=== PATIENT | male | born 1945 | race Caucasian/White ===

== ENCOUNTER 2022-08-01 13:16 | Inpatient (IN) | payer MEDICARE ==
[~2022-08-01 13:16] MED LIST: Iopamidol-370 76% 500 ML 1 ML ONE
[2022-08-01] MEDS ORDERED: LORazepam 2 MG/ML SYR.(CARPUJECT) ONE ×2 (13:27→15:26)
[2022-08-01] MEDS ORDERED: Ondansetron PF 4 MG/2 ML Vial ONE (13:43)
[2022-08-01] MEDS ORDERED: Rocuronium Bromide 10 MG/ML (10ML VIAL) ONE (13:52)
[2022-08-01 13:54] LABS: #Basophils 0.1 thou/uL (0.0-0.2); #Eosinphils 0.2 thou/uL (0.0-0.7); #Lymphocytes 2.9 thou/uL (1.20-3.40); #Monocytes 0.6 thou/uL (0.11-0.59); #Neutrophils 5.6 thou/uL (1.40-6.50); %Basophils 0.6 % (0.0-1.0); %Eosinophils 2.1 % (0.0-10.0); %Lymphocytes 30.7 % (21.0-51.0); %Monocytes 6.8 % (0.0-10.0); %Neutrophils 59.9 % (42.0-75.0); Hemoglobin 14.7 g/dL (14.0-18.0); Mean Corpuscular HGB CONC 32.3 g/dL (32.0-36.0); Mean Corpuscular Hemoglobin 30.5 pg (27.0-31.0); Mean Corpuscular Volume 94.3 fl (78.0-98.0); Mean Platelet Volume 10.4 fL (7.4-10.4); Platelet Count 161 10x3/uL (130-400); RBC Distribution Width 12.6 % (11.5-14.5); Red Blood Cell (RBC) Count 4.81 mill/uL (4.70-6.10); White Blood Cell (WBC) Count 9.4 10x3/uL (4.8-10.8)
[2022-08-01] MEDS ORDERED: Propofol 1,000 MG/100 ML VIAL IV ONE (13:58)
[2022-08-01 14:08] LABS: ALT (SGPT) Less than 7 U/L (8-55); AST (SGOT) 40 U/L (5-34); Albumin 4.5 g/dL (3.4-4.8); Alkaline Phosphatase 73 U/L (40-110); Anion Gap 18 mmol/L (10-20); BUN (Urea Nitrogen) 24 mg/dL (8.4-25.7); Bilirubin, Total 2.1 mg/dL (0.2-1.2); Calc. Creatinine Clearance 0 mL/min (70-130); Calcium 9.2 mg/dL (7.8-10.44); Carbon Dioxide 22 mmol/L (23-31); Chloride 106 mmol/L (98-107); Estimated GFR 77; Glucose 125 mg/dL (83-110); Potassium 4.9 mmol/L (3.5-5.1); Protein, Total 7.5 g/dL (5.8-8.1); Sodium 141 mmol/L (136-145)
[2022-08-01 14:17] LABS: INR-International Normal Ratio 1.2; PTT 29.2 sec (22.9-36.1); Prothrombin Time 15.3 sec (12.0-14.7)
[2022-08-01 14:30] LABS: Actual Bicarbonate (HCO3a) 25.4 mEq/L (22-28); Analyzer IN Cardio ER; Base Excess (BEa) 1.2 mEq/L (-2.0 to +3.0); CO2 Tension 38.9 mmHg (35.0-45.0); Calcium, Ionized (arterial) 1.11 mmol/L (1.12-1.30); Carboxyhemoglobin (COHb) 0.2 gm% (0.0-3.0); O2 Tension (PaO2), arterial 79.5 mmHg (> 70.0); Potassium - ABG Lab 4.36 mmol/L (3.70-5.30); pH, Arterial 7.43 (7.35-7.45)
[2022-08-01 14:32] LABS: ALV-art Gradient 228.375 mmHg (0-20); Puncture Site LRA
[2022-08-01] MEDS ORDERED: hydrALAZINE 20 MG/ML VIAL SLOW IVP PRN (14:39)
[2022-08-01] MEDS ORDERED: Ondansetron PF 4 MG/2 ML Vial IVP PRN (14:44)
[2022-08-01 15:13] LABS: Bacteria/HPF None Seen HPF (None Seen); Bilirubin Negative (Negative); Blood, Urine Trace (Negative); Calcium Oxalate Crystals 1+ HPF (None Seen); Clarity Clear (Clear); Glucose, Urine (Dipstick) Normal (Negative); Ketone, Urine Trace mg/dL (Negative); Leukocyte Negative Leu/uL (Negative); Nitrite Negative (Negative); Protein, Urine (Dipstick) 50 mg/dL (Neg-Trace); Specific Gravity, Urine 1.031 (1.002-1.036); Squamous Epithelial 0-3 HPF (0-3); pH, Urine 5.5 (5.0-9.0)
[2022-08-01] MEDS ORDERED: Aspirin 300 MG Suppository PR SCH (15:15)
[2022-08-01] MEDS ORDERED: Ventilator Sedation Protocol 1 EACH FS SCH (15:52)
[2022-08-01] MEDS ORDERED: Fentanyl CADD 100 ML IV SCH (16:00)
[2022-08-01] MEDS ORDERED: DISCONTINUE PREVIOUS NARCOTIC PAIN MEDICATIONS AND BENZODIAZEPINES FS SCH (16:00)
[2022-08-01] MEDS ORDERED: Fentanyl BOLUS 250 ML IVPB PRN (16:00)
[2022-08-01] MEDS ORDERED: Propofol BOLUS 1,000 MG/100 ML VIAL IV PRN (16:00)
[2022-08-01 16:17] LABS: Acetaminophen Less than 10.0 mcg/mL (10.0-30.0); Alcohol Less than 10 mg/dL (Less than 10); Salicylate Less than 8.0 mg/dL (15.0-30.0)
[2022-08-01] MEDS: Morphine 2 MG/ML VIAL SLOW IVP PRN (17:11)
[2022-08-01] MEDS: Midazolam HCl 2 mg/2 ml Vial SLOW IVP PRN (17:11)
[2022-08-01] MEDS: Sodium Chloride 0.9% 1,000 ML IV SCH ×2 (17:13→23:57)
[2022-08-01] MEDS: Propofol 1,000 MG/100 ML VIAL IV PRN ×2 (17:13→22:06)
[2022-08-01 18:38] LABS: Amphetamine Not Detected (NotDetected); Barbiturates Screen Not Detected (NotDetected); Benzodiazepine Screen Not Detected (NotDetected); Cocaine Metabolite Screen Not Detected (NotDetected); Methadone Not Detected (NotDetected); Methamphetamine Not Detected (NotDetected); Opiate Screen Not Detected (NotDetected); Oxycodone Screen Not Detected (NotDetected); Phencyclidine (PCP) Not Detected (NotDetected); THC/Cannabinoid Screen Not Detected (NotDetected); Tricyclic Screen Not Detected (NotDetected)
[2022-08-01 18:39] LABS: Troponin I 0.048 ng/mL (< 0.028)
[2022-08-01] MEDS: Famotidine/PF 20 mg/2ml Vial SLOW IVP SCH (20:00)
[2022-08-01] MEDS: Atorvastatin Calcium 40 MG TAB PO SCH (20:00)
[2022-08-01 23:30] LABS: Troponin I 0.049 ng/mL (< 0.028)
[2022-08-02 06:15] LABS: #Eosinphils 0.1 thou/uL (0.0-0.7); #Lymphocytes 1.1 thou/uL (1.20-3.40); #Monocytes 0.7 thou/uL (0.11-0.59); #Neutrophils 8.5 thou/uL (1.40-6.50); %Basophils 0.4 % (0.0-1.0); %Eosinophils 1.3 % (0.0-10.0); %Lymphocytes 10.5 % (21.0-51.0); %Monocytes 6.4 % (0.0-10.0); %Neutrophils 81.4 % (42.0-75.0); Hemoglobin 14.6 g/dL (14.0-18.0); Mean Corpuscular HGB CONC 31.1 g/dL (32.0-36.0); Mean Corpuscular Hemoglobin 30.3 pg (27.0-31.0); Mean Corpuscular Volume 97.2 fl (78.0-98.0); Mean Platelet Volume 10.5 fL (7.4-10.4); Platelet Count 107 10x3/uL (130-400); RBC Distribution Width 12.6 % (11.5-14.5); Red Blood Cell (RBC) Count 4.82 mill/uL (4.70-6.10); White Blood Cell (WBC) Count 10.5 10x3/uL (4.8-10.8)
[2022-08-02 06:20] LABS: Hemoglobin A1c 5.5 % (4.0-6.0)
[2022-08-02 06:36] LABS: ALT (SGPT) 8 U/L (8-55); AST (SGOT) 26 U/L (5-34); Albumin 3.9 g/dL (3.4-4.8); Alkaline Phosphatase 70 U/L (40-110); Anion Gap 14 mmol/L (10-20); BUN (Urea Nitrogen) 19 mg/dL (8.4-25.7); Bilirubin, Total 1.9 mg/dL (0.2-1.2); Calc. Creatinine Clearance 81 mL/min (70-130); Calcium 9.1 mg/dL (7.8-10.44); Carbon Dioxide 21 mmol/L (23-31); Cardiac Risk 3.3 (Less than 4.5); Chloride 108 mmol/L (98-107); Cholesterol 117 mg/dl (< 200 Desired); Estimated GFR 88; Globulin 2.8 g/dL (2.4-3.5); Glucose 98 mg/dL (83-110); HDL Cholesterol 35 mg/dL (>60 Neg Risk); LDL Cholesterol, Calculated 57 mg/dL; Potassium 4.2 mmol/L (3.5-5.1); Protein, Total 6.7 g/dL (5.8-8.1); Sodium 139 mmol/L (136-145); Triglycerides 124 mg/dL (Less than 150)
[2022-08-02 07:32] LABS: Actual Bicarbonate (HCO3a) 22.3 mEq/L (22-28); CO2 Tension 33.1 mmHg (35.0-45.0); Calcium, Ionized (arterial) 1.16 mmol/L (1.12-1.30); Carboxyhemoglobin (COHb) 0.5 gm% (0.0-3.0); Hemoglobin (Hb) 14.3 g/dL (14.0-18.0); Potassium - ABG Lab 4.15 mmol/L (3.70-5.30); pH, Arterial 7.45 (7.35-7.45)
[2022-08-02 07:36] LABS: ALV-art Gradient 136.825 mmHg (0-20); Puncture Site RRA
[2022-08-02] MEDS: Clopidogrel Bisulfate 75 MG TAB PO SCH (08:31)
[2022-08-02] MEDS: Famotidine/PF 20 mg/2ml Vial SLOW IVP SCH ×2 (08:31→20:06)
[2022-08-02] MEDS: Aspirin 325 MG TAB PO SCH (08:31)
[2022-08-02] MEDS: cefTRIAXone\\ROCEPHIN 2 GM in Sodium Chloride 0.9% 100 ML IVPB SCH (08:32)
[2022-08-02 08:37] LABS: Band 5 % (5-11); Eosinophils 1 % (0-10); Lymphocytes 10 % (21-51); MDiff Complete? YES; Monocytes 4 % (0-10); Neutrophil 80 % (42-75); Platelet Morphology Comment Appears Decreased; RBC Morphology Normal
[2022-08-02] MEDS: Acetaminophen 325 MG TAB PO PRN (08:49)
[2022-08-02] MEDS: Scopolamine 1.5 mg/72 hour Patch TD SCH (08:51)
[2022-08-02] MEDS ORDERED: Aspirin 300 MG Suppository PR SCH (09:00)
[2022-08-02] MEDS: Sodium Chloride 0.9% 1,000 ML IV SCH ×2 (10:31→15:26)
[2022-08-02] MEDS: RYTARY PER TUBE SCH ×6 (10:32→17:53)
[2022-08-02] MEDS: SELEGILINE 5 MG PER TUBE SCH (11:37)
[2022-08-02] MEDS: Midazolam HCl 2 mg/2 ml Vial SLOW IVP PRN ×3 (11:37→16:02)
[2022-08-02] MEDS: AMANTADINE 100 MG PER TUBE SCH (14:06)
[2022-08-02] MEDS: Morphine 2 MG/ML VIAL SLOW IVP PRN (16:02)
[2022-08-02] MEDS: Atorvastatin Calcium 40 MG TAB PO SCH (20:06)
[2022-08-03] MEDS: Sodium Chloride 0.9% 1,000 ML IV SCH (00:01)
[2022-08-03] MEDS: Midazolam HCl 2 mg/2 ml Vial SLOW IVP PRN (00:15)
[2022-08-03] MEDS: Propofol 1,000 MG/100 ML VIAL IV PRN (02:15)
[2022-08-03 04:16] LABS: #Eosinphils 0.1 thou/uL (0.0-0.7); #Lymphocytes 0.8 thou/uL (1.20-3.40); #Monocytes 0.6 thou/uL (0.11-0.59); #Neutrophils 6.2 thou/uL (1.40-6.50); %Basophils 0.5 % (0.0-1.0); %Eosinophils 1.2 % (0.0-10.0); %Lymphocytes 9.9 % (21.0-51.0); %Monocytes 8.1 % (0.0-10.0); %Neutrophils 80.4 % (42.0-75.0); Hemoglobin 12.9 g/dL (14.0-18.0); Mean Corpuscular HGB CONC 31.6 g/dL (32.0-36.0); Mean Corpuscular Hemoglobin 29.6 pg (27.0-31.0); Mean Corpuscular Volume 93.8 fl (78.0-98.0); Mean Platelet Volume 10.8 fL (7.4-10.4); Platelet Count 86 10x3/uL (130-400); RBC Distribution Width 12.4 % (11.5-14.5); Red Blood Cell (RBC) Count 4.35 mill/uL (4.70-6.10); White Blood Cell (WBC) Count 7.7 10x3/uL (4.8-10.8)
[2022-08-03 04:18] LABS: ALT (SGPT) Less than 7 U/L (8-55); AST (SGOT) 13 U/L (5-34); Albumin 3.2 g/dL (3.4-4.8); Alkaline Phosphatase 53 U/L (40-110); Anion Gap 12 mmol/L (10-20); BUN (Urea Nitrogen) 15 mg/dL (8.4-25.7); Bilirubin, Total 2.8 mg/dL (0.2-1.2); Calc. Creatinine Clearance 100 mL/min (70-130); Calcium 8.2 mg/dL (7.8-10.44); Carbon Dioxide 20 mmol/L (23-31); Chloride 111 mmol/L (98-107); Estimated GFR 94; Globulin 2.2 g/dL (2.4-3.5); Glucose 102 mg/dL (83-110); Potassium 4.2 mmol/L (3.5-5.1); Protein, Total 5.4 g/dL (5.8-8.1); Sodium 139 mmol/L (136-145)
[2022-08-03] MEDS: AMANTADINE 100 MG PER TUBE SCH ×2 (06:12→15:07)
[2022-08-03] MEDS: RYTARY PER TUBE SCH ×8 (06:12→18:38)
[2022-08-03] MEDS: SELEGILINE 5 MG PER TUBE SCH ×2 (08:49→12:39)
[2022-08-03] MEDS: cefTRIAXone\\ROCEPHIN 2 GM in Sodium Chloride 0.9% 100 ML IVPB SCH (08:52)
[2022-08-03] MEDS: Famotidine/PF 20 mg/2ml Vial SLOW IVP SCH ×2 (08:53→20:05)
[2022-08-03] MEDS: Clopidogrel Bisulfate 75 MG TAB PO SCH (08:53)
[2022-08-03] MEDS: Aspirin 325 MG TAB PO SCH (08:59)
[2022-08-03] MEDS ORDERED: Midazolam HCl 100 MG in Admixture Fee 1 EACH IVPB SCH (12:00)
[2022-08-03] MEDS ORDERED: Furosemide 40 MG/4 ML VIAL IVP SCH (14:36)
[2022-08-03] MEDS ORDERED: Sodium Chloride 0.9% 1,000 ML IV SCH (14:37)
[2022-08-03] MEDS: Atorvastatin Calcium 40 MG TAB PO SCH (20:05)
[2022-08-03] MEDS ORDERED: Amiodarone 150 MG, Admixture Fee 1 EACH in Dextrose 5% in Water 100 ML IVPB SCH (22:00)
[2022-08-03] MEDS: Amiodarone 450 MG in Dextrose 5% in Water 250 ML IVPB SCH (22:10)
[2022-08-04 04:12] LABS: #Eosinphils 0.1 thou/uL (0.0-0.7); #Lymphocytes 1.1 thou/uL (1.20-3.40); #Monocytes 0.9 thou/uL (0.11-0.59); #Neutrophils 6.5 thou/uL (1.40-6.50); %Basophils 0.5 % (0.0-1.0); %Eosinophils 1.5 % (0.0-10.0); %Lymphocytes 12.6 % (21.0-51.0); %Monocytes 10.2 % (0.0-10.0); %Neutrophils 75.2 % (42.0-75.0); Hemoglobin 14.4 g/dL (14.0-18.0); Mean Corpuscular HGB CONC 32.6 g/dL (32.0-36.0); Mean Corpuscular Hemoglobin 30.6 pg (27.0-31.0); Mean Corpuscular Volume 93.8 fl (78.0-98.0); Platelet Count 97 10x3/uL (130-400); RBC Distribution Width 12.2 % (11.5-14.5); Red Blood Cell (RBC) Count 4.72 mill/uL (4.70-6.10); White Blood Cell (WBC) Count 8.6 10x3/uL (4.8-10.8)
[2022-08-04 04:20] LABS: ALT (SGPT) Less than 7 U/L (8-55); AST (SGOT) 15 U/L (5-34); Albumin 3.2 g/dL (3.4-4.8); Alkaline Phosphatase 57 U/L (40-110); Anion Gap 16 mmol/L (10-20); BUN (Urea Nitrogen) 15 mg/dL (8.4-25.7); Bilirubin, Direct 0.8 mg/dL (0.1-0.3); Bilirubin, Total 2.4 mg/dL (0.2-1.2); Calc. Creatinine Clearance 92 mL/min (70-130); Carbon Dioxide 20 mmol/L (23-31); Chloride 105 mmol/L (98-107); Potassium 3.9 mmol/L (3.5-5.1); Sodium 137 mmol/L (136-145)
[2022-08-04 04:21] LABS: Estimated GFR 92; Glucose 85 mg/dL (83-110); Magnesium 1.7 mg/dL (1.6-2.6)
[2022-08-04] MEDS: AMANTADINE 100 MG PER TUBE SCH ×2 (06:38→14:57)
[2022-08-04] MEDS: RYTARY PER TUBE SCH ×8 (06:38→18:46)
[2022-08-04] MEDS: Famotidine/PF 20 mg/2ml Vial SLOW IVP SCH ×2 (08:45→20:13)
[2022-08-04] MEDS: cefTRIAXone\\ROCEPHIN 2 GM in Sodium Chloride 0.9% 100 ML IVPB SCH (08:45)
[2022-08-04] MEDS: SELEGILINE 5 MG PER TUBE SCH ×2 (08:46→12:03)
[2022-08-04] MEDS: Clopidogrel Bisulfate 75 MG TAB PO SCH (08:47)
[2022-08-04] MEDS: Aspirin 325 MG TAB PO SCH (08:48)
[2022-08-04] MEDS: Amiodarone 450 MG in Dextrose 5% in Water 250 ML IVPB SCH (10:30)
[2022-08-04] MEDS ORDERED: Electrolyte Replacement Protocol 1 EACH FS SCH (11:15)
[2022-08-04] MEDS ORDERED: Magnesium 2 GM/50 ML(in water) 2 GM in Premix Bag 1 BAG IVPB SCH (11:15)
[2022-08-04] MEDS ORDERED: Electrolyte Replacement Protocol FS PRN (11:30)
[2022-08-04] MEDS: Furosemide 40 MG/4 ML VIAL SLOW IVP SCH ×2 (12:02→16:15)
[2022-08-04] MEDS: Acetaminophen 325 MG TAB PO PRN (12:37)
[2022-08-04] MEDS: Atorvastatin Calcium 40 MG TAB PO SCH (20:13)
[2022-08-04] MEDS: Midazolam HCl 2 mg/2 ml Vial SLOW IVP PRN (20:13)
[2022-08-05] MEDS: Amiodarone 450 MG in Dextrose 5% in Water 250 ML IVPB SCH ×2 (02:10→16:53)
[2022-08-05 05:18] LABS: #Eosinphils 0.1 thou/uL (0.0-0.7); #Monocytes 0.8 thou/uL (0.11-0.59); %Basophils 0.4 % (0.0-1.0); %Eosinophils 1.7 % (0.0-10.0); %Lymphocytes 14.2 % (21.0-51.0); %Monocytes 11.6 % (0.0-10.0); %Neutrophils 72.1 % (42.0-75.0); Hemoglobin 13.9 g/dL (14.0-18.0); Mean Corpuscular Hemoglobin 30.3 pg (27.0-31.0); Mean Corpuscular Volume 91.9 fl (78.0-98.0); Mean Platelet Volume 10.5 fL (7.4-10.4); Platelet Count 111 10x3/uL (130-400); RBC Distribution Width 12.3 % (11.5-14.5); Red Blood Cell (RBC) Count 4.58 mill/uL (4.70-6.10); White Blood Cell (WBC) Count 6.9 10x3/uL (4.8-10.8)
[2022-08-05 05:38] LABS: ALT (SGPT) Less than 7 U/L (8-55); AST (SGOT) 16 U/L (5-34); Albumin 3.2 g/dL (3.4-4.8); Alkaline Phosphatase 52 U/L (40-110); Anion Gap 12 mmol/L (10-20); BUN (Urea Nitrogen) 18 mg/dL (8.4-25.7); Bilirubin, Total 1.7 mg/dL (0.2-1.2); Calc. Creatinine Clearance 86 mL/min (70-130); Calcium 8.4 mg/dL (7.8-10.44); Carbon Dioxide 27 mmol/L (23-31); Chloride 99 mmol/L (98-107); Estimated GFR 90; Globulin 2.8 g/dL (2.4-3.5); Glucose 107 mg/dL (83-110); Magnesium 1.9 mg/dL (1.6-2.6); Potassium 3.2 mmol/L (3.5-5.1); Sodium 135 mmol/L (136-145)
[2022-08-05] MEDS: Furosemide 40 MG/4 ML VIAL SLOW IVP SCH ×2 (06:19→15:02)
[2022-08-05] MEDS: RYTARY PER TUBE SCH ×8 (06:22→18:46)
[2022-08-05] MEDS: AMANTADINE 100 MG PER TUBE SCH ×2 (06:22→15:02)
[2022-08-05] MEDS ORDERED: Potassium Chloride 20 MEQ TAB PO SCH (08:00)
[2022-08-05] MEDS ORDERED: Magnesium 2 GM/50 ML(in water) 2 GM in Premix Bag 1 BAG IVPB SCH (08:00)
[2022-08-05] MEDS: SELEGILINE 5 MG PER TUBE SCH ×2 (08:51→12:05)
[2022-08-05] MEDS: Famotidine/PF 20 mg/2ml Vial SLOW IVP SCH ×2 (08:54→20:17)
[2022-08-05] MEDS: Clopidogrel Bisulfate 75 MG TAB PO SCH (08:54)
[2022-08-05] MEDS: Aspirin 325 MG TAB PO SCH (08:58)
[2022-08-05] MEDS: Scopolamine 1.5 mg/72 hour Patch TD SCH (09:20)
[2022-08-05] MEDS ORDERED: hydrALAZINE 20 MG/ML VIAL SLOW IVP PRN (09:55)
[2022-08-05] MEDS ORDERED: Potassium Chloride 20 MEQ in Premix Bag 1 BAG IVPB SCH (10:00)
[2022-08-05] MEDS ORDERED: Potassium Bicarbonate/Cit Ac 20 MEQ TAB PER TUBE SCH (10:00)
[2022-08-05] MEDS: Acetaminophen 325 MG TAB PO PRN (12:00)
[2022-08-05 14:31] LABS: Potassium 3.9 mmol/L (3.5-5.1)
[2022-08-05] MEDS: Atorvastatin Calcium 40 MG TAB PO SCH (20:17)
[2022-08-06] MEDS: Furosemide 40 MG/4 ML VIAL SLOW IVP SCH ×2 (05:30→14:21)
[2022-08-06] MEDS: RYTARY PER TUBE SCH ×8 (06:23→18:44)
[2022-08-06] MEDS: Amiodarone 450 MG in Dextrose 5% in Water 250 ML IVPB SCH ×2 (06:23→22:32)
[2022-08-06] MEDS: AMANTADINE 100 MG PER TUBE SCH ×2 (06:24→14:34)
[2022-08-06 07:55] LABS: Anion Gap 17 mmol/L (10-20); BUN (Urea Nitrogen) 20 mg/dL (8.4-25.7); Calc. Creatinine Clearance 79 mL/min (70-130); Carbon Dioxide 27 mmol/L (23-31); Chloride 97 mmol/L (98-107); Estimated GFR 90; Glucose 112 mg/dL (83-110); Potassium 3.8 mmol/L (3.5-5.1); Sodium 137 mmol/L (136-145)
[2022-08-06] MEDS: Aspirin 325 MG TAB PO SCH (08:31)
[2022-08-06] MEDS: Famotidine/PF 20 mg/2ml Vial SLOW IVP SCH ×3 (08:31→20:44)
[2022-08-06] MEDS: Clopidogrel Bisulfate 75 MG TAB PO SCH (08:31)
[2022-08-06] MEDS: Spironolactone 25 MG TAB PO SCH (08:31)
[2022-08-06] MEDS: SELEGILINE 5 MG PER TUBE SCH ×3 (08:33→14:40)
[2022-08-06] MEDS ORDERED: Magnesium 2 GM/50 ML(in water) 2 GM in Premix Bag 1 BAG IVPB SCH (09:00)
[2022-08-06] MEDS: Acetaminophen 325 MG TAB PO PRN (09:02)
[2022-08-06] MEDS: Digoxin 0.5 MG/2 ML AMP SLOW IVP SCH ×2 (12:32→14:19)
[2022-08-06] MEDS: Atorvastatin Calcium 40 MG TAB PO SCH (20:45)
[2022-08-07] MEDS: Furosemide 40 MG/4 ML VIAL SLOW IVP SCH ×2 (06:24→15:18)
[2022-08-07] MEDS: AMANTADINE 100 MG PER TUBE SCH ×2 (06:25→15:15)
[2022-08-07] MEDS: RYTARY PER TUBE SCH ×8 (06:25→19:06)
[2022-08-07 07:12] LABS: Anion Gap 18 mmol/L (10-20); BUN (Urea Nitrogen) 26 mg/dL (8.4-25.7); Calc. Creatinine Clearance 79 mL/min (70-130); Calcium 9.4 mg/dL (7.8-10.44); Carbon Dioxide 26 mmol/L (23-31); Chloride 96 mmol/L (98-107); Estimated GFR 90; Glucose 97 mg/dL (83-110); Magnesium 2.2 mg/dL (1.6-2.6); Potassium 3.6 mmol/L (3.5-5.1); Sodium 136 mmol/L (136-145)
[2022-08-07] MEDS: SELEGILINE 5 MG PER TUBE SCH ×2 (08:39→11:54)
[2022-08-07] MEDS: Spironolactone 25 MG TAB PO SCH (08:39)
[2022-08-07] MEDS: Famotidine/PF 20 mg/2ml Vial SLOW IVP SCH ×2 (09:24→22:43)
[2022-08-07] MEDS: Clopidogrel Bisulfate 75 MG TAB PO SCH (09:25)
[2022-08-07] MEDS: Aspirin 325 MG TAB PO SCH (09:25)
[2022-08-07] MEDS: Empagliflozin 10 MG TAB PO SCH (09:25)
[2022-08-07] MEDS: Atorvastatin Calcium 40 MG TAB PO SCH (22:43)
[2022-08-08 04:27] LABS: Anion Gap 13 mmol/L (10-20); BUN (Urea Nitrogen) 28 mg/dL (8.4-25.7); Calc. Creatinine Clearance 65 mL/min (70-130); Carbon Dioxide 29 mmol/L (23-31); Chloride 96 mmol/L (98-107); Estimated GFR 77; Glucose 102 mg/dL (83-110); Magnesium 2.1 mg/dL (1.6-2.6); Potassium 3.3 mmol/L (3.5-5.1); Sodium 135 mmol/L (136-145)
[2022-08-08] MEDS: Furosemide 40 MG/4 ML VIAL SLOW IVP SCH (05:21)
[2022-08-08] MEDS: Amiodarone 450 MG in Dextrose 5% in Water 250 ML IVPB SCH (07:45)
[2022-08-08] MEDS: AMANTADINE 100 MG PER TUBE SCH ×2 (07:46→15:07)
[2022-08-08] MEDS: RYTARY PER TUBE SCH ×8 (07:47→19:31)
[2022-08-08] MEDS ORDERED: Potassium Chloride 20 MEQ TAB PO SCH (08:00)
[2022-08-08] MEDS ORDERED: Digoxin 0.5 MG/2 ML AMP SLOW IVP SCH (09:00)
[2022-08-08] MEDS: SELEGILINE 5 MG PER TUBE SCH ×2 (09:49→13:05)
[2022-08-08] MEDS: Aspirin 325 MG TAB PO SCH (09:51)
[2022-08-08] MEDS: Spironolactone 25 MG TAB PO SCH (09:51)
[2022-08-08] MEDS: Empagliflozin 10 MG TAB PO SCH (09:51)
[2022-08-08] MEDS: Clopidogrel Bisulfate 75 MG TAB PO SCH (09:51)
[2022-08-08] MEDS: Famotidine/PF 20 mg/2ml Vial SLOW IVP SCH ×2 (09:51→21:26)
[2022-08-08] MEDS ORDERED: Potassium Bicarbonate/Cit Ac 20 MEQ TAB PO SCH (11:00)
[2022-08-08] MEDS ORDERED: Sodium Chloride 0.9% 250 ML IV SCH (11:45)
[2022-08-08] MEDS ORDERED: QUEtiapine 25 MG TAB PO SCH (13:15)
[2022-08-08] MEDS ORDERED: Mirtazapine 30 MG Soltab PO SCH (21:00)
[2022-08-08] MEDS: Amiodarone 200 MG TAB PO SCH (21:24)
[2022-08-08] MEDS: QUEtiapine 25 MG TAB PO SCH (21:24)
[2022-08-08] MEDS: Atorvastatin Calcium 40 MG TAB PO SCH (21:26)
[2022-08-09 05:20] LABS: Anion Gap 17 mmol/L (10-20); BUN (Urea Nitrogen) 39 mg/dL (8.4-25.7); Calc. Creatinine Clearance 43 mL/min (70-130); Calcium 9.2 mg/dL (7.8-10.44); Carbon Dioxide 27 mmol/L (23-31); Chloride 96 mmol/L (98-107); Estimated GFR 43; Glucose 117 mg/dL (83-110); Magnesium 2.3 mg/dL (1.6-2.6); Potassium 3.9 mmol/L (3.5-5.1); Sodium 136 mmol/L (136-145)
[2022-08-09] MEDS: AMANTADINE 100 MG PER TUBE SCH ×2 (08:11→16:09)
[2022-08-09] MEDS: RYTARY PER TUBE SCH ×8 (08:11→19:00)
[2022-08-09] MEDS: SELEGILINE 5 MG PER TUBE SCH ×2 (08:11→13:56)
[2022-08-09] MEDS ORDERED: Lidocaine 1% w/Epinephrine 1:100K 20 ML VIAL ONE (09:03)
[2022-08-09] MEDS: QUEtiapine 25 MG TAB PO SCH ×2 (10:04→20:33)
[2022-08-09] MEDS: Amiodarone 200 MG TAB PO SCH ×3 (10:04→20:33)
[2022-08-09] MEDS: Clopidogrel Bisulfate 75 MG TAB PO SCH (10:05)
[2022-08-09] MEDS: Aspirin 325 MG TAB PO SCH (10:05)
[2022-08-09] MEDS: Spironolactone 25 MG TAB PO SCH (10:05)
[2022-08-09] MEDS: Famotidine/PF 20 mg/2ml Vial SLOW IVP SCH ×2 (10:05→11:16)
[2022-08-09] MEDS: Empagliflozin 10 MG TAB PO SCH (10:05)
[2022-08-09] MEDS: Sodium Chloride 0.9% 1,000 ML IV SCH (13:56)
[2022-08-09 16:11] VITALS: BMI 23.3
[2022-08-09] MEDS: Atorvastatin Calcium 40 MG TAB PO SCH (20:33)
[2022-08-10] MEDS: RYTARY PER TUBE SCH ×8 (06:37→20:17)
[2022-08-10] MEDS: AMANTADINE 100 MG PER TUBE SCH ×2 (06:37→15:48)
[2022-08-10] MEDS: SELEGILINE 5 MG PER TUBE SCH ×2 (09:35→12:51)
[2022-08-10] MEDS: Empagliflozin 10 MG TAB PO SCH (09:36)
[2022-08-10] MEDS: Amiodarone 200 MG TAB PO SCH ×3 (09:36→20:30)
[2022-08-10] MEDS: Clopidogrel Bisulfate 75 MG TAB PO SCH (09:36)
[2022-08-10] MEDS: QUEtiapine 25 MG TAB PO SCH ×2 (09:36→20:30)
[2022-08-10] MEDS: Famotidine/PF 20 mg/2ml Vial SLOW IVP SCH (09:36)
[2022-08-10] MEDS: Aspirin 325 MG TAB PO SCH (09:36)
[2022-08-10] MEDS: Sodium Chloride 0.9% 1,000 ML IV SCH (09:37)
[2022-08-10 10:18] LABS: Calcium 9.1 mg/dL (7.8-10.44); Chloride 99 mmol/L (98-107); Potassium 4.4 mmol/L (3.5-5.1); Sodium 135 mmol/L (136-145)
[2022-08-10 10:19] LABS: Glucose 96 mg/dL (83-110)
[2022-08-10 10:20] LABS: Anion Gap 20 mmol/L (10-20); Carbon Dioxide 20 mmol/L (23-31)
[2022-08-10 10:23] LABS: BUN (Urea Nitrogen) 60 mg/dL (8.4-25.7)
[2022-08-10 10:24] LABS: Magnesium 2.5 mg/dL (1.6-2.6)
[2022-08-10 10:33] LABS: Calc. Creatinine Clearance 18 mL/min (70-130); Estimated GFR 15
[2022-08-10] MEDS ORDERED: Sodium Chloride 0.9% 1,000 ML IV SCH (11:00)
[2022-08-10] MEDS ORDERED: Sodium Bicarbonate 150 MEQ in Dextrose 5% in Water 1,000 ML IV SCH (17:30)
[2022-08-10] MEDS: Atorvastatin Calcium 40 MG TAB PO SCH (20:30)
[2022-08-11 01:21] LABS: Creatinine, Urine 127.16 mg/dL (63-166)
[2022-08-11 04:34] LABS: ALT (SGPT) Less than 7 U/L (8-55); AST (SGOT) 19 U/L (5-34); Albumin 3.3 g/dL (3.4-4.8); Alkaline Phosphatase 53 U/L (40-110); Anion Gap 17 mmol/L (10-20); BUN (Urea Nitrogen) 62 mg/dL (8.4-25.7); BUN/Creatinine Ratio 17.97; Bilirubin, Total 1.1 mg/dL (0.2-1.2); Calc. Creatinine Clearance 21 mL/min (70-130); Calcium 8.7 mg/dL (7.8-10.44); Carbon Dioxide 25 mmol/L (23-31); Chloride 97 mmol/L (98-107); Estimated GFR 18; Globulin 2.9 g/dL (2.4-3.5); Glucose 124 mg/dL (83-110); Phosphorus 4.2 mg/dL (2.3-4.7); Potassium 3.6 mmol/L (3.5-5.1); Protein, Total 6.2 g/dL (5.8-8.1); Sodium 135 mmol/L (136-145)
[2022-08-11 05:03] LABS: Band 21 % (5-11); Eosinophils 1 % (0-10); Hemoglobin 13.3 g/dL (14.0-18.0); Lymphocytes 6 % (21-51); MDiff Complete? YES; Mean Corpuscular HGB CONC 33.6 g/dL (32.0-36.0); Mean Corpuscular Hemoglobin 31.1 pg (27.0-31.0); Mean Corpuscular Volume 92.8 fl (78.0-98.0); Mean Platelet Volume 9.8 fL (7.4-10.4); Monocytes 8 % (0-10); Neutrophil 64 % (42-75); Platelet Count 159 10x3/uL (130-400); RBC Distribution Width 12.4 % (11.5-14.5); Red Blood Cell (RBC) Count 4.26 mill/uL (4.70-6.10); Toxic Granulation SLIGHT
[2022-08-11] MEDS: AMANTADINE 100 MG PER TUBE SCH ×2 (06:22→15:16)
[2022-08-11] MEDS: RYTARY PER TUBE SCH ×6 (06:22→15:18)
[2022-08-11] MEDS: Clopidogrel Bisulfate 75 MG TAB PO SCH (09:26)
[2022-08-11] MEDS: Amiodarone 200 MG TAB PO SCH ×2 (09:26→15:16)
[2022-08-11] MEDS: SELEGILINE 5 MG PER TUBE SCH ×2 (09:26→11:45)
[2022-08-11] MEDS: Empagliflozin 10 MG TAB PO SCH (09:26)
[2022-08-11] MEDS: Aspirin 325 MG TAB PO SCH (09:26)
[2022-08-11] MEDS: Famotidine/PF 20 mg/2ml Vial SLOW IVP SCH (09:29)
[2022-08-11] MEDS ORDERED: Finasteride 5 MG TAB PO SCH (11:00)
[2022-08-11 16:28] VITALS: BP 121/77; TEMP 97.8
[2022-08-11] MEDS ORDERED: Vancomycin HCl 125 MG/5 ML (BATCHED) UDCUP PO SCH (18:00)
[2022-08-11] MEDS ORDERED: Tamsulosin HCl 0.4 MG CAP PO SCH (21:00)
[2022-08-12] MEDS ORDERED: Aspirin Chewable 81 MG TAB PO SCH (09:00)
[2022-08-12] MEDS ORDERED: Finasteride 5 MG TAB PO SCH ×2 (09:00→11:00)
== END 2022-08-11 18:50 | disposition short-term general hospital (02) | DRG 260 ==
LOC: SUATTDRO 13:16 → ERS 13:16 → ERHOLD 14:05 → CCU 16:47 → 2NO 08-07 15:58
PROVIDERS: ADMIT Internal Medicine; ATTEND Internal Medicine
PROC: 5A1955Z Respiratory Ventilation, Greater than 96 Consecutive Hours (ICD-10-PCS; 2022-08-01)
PROC: 0BH17EZ Insertion of Endotracheal Airway into Trachea, Via Natural or Artificial Opening (ICD-10-PCS; 2022-08-01)
PROC: 0JH632Z Insertion of Monitoring Device into Chest Subcutaneous Tissue and Fascia, Percutaneous Approach (ICD-10-PCS; principal; 2022-08-09)
DX: I48.0 Paroxysmal atrial fibrillation (principal); G93.41 Metabolic encephalopathy; I21.A1 Myocardial infarction type 2; I50.23 Acute on chronic systolic (congestive) heart failure; J18.9 Pneumonia, unspecified organism; J96.01 Acute respiratory failure with hypoxia; F05 Delirium due to known physiological condition; N17.9 Acute kidney failure, unspecified; A04.72 Enterocolitis due to Clostridium difficile, not specified as recurrent; E87.1 Hypo-osmolality and hyponatremia; E87.20 Acidosis, unspecified; N13.30 Unspecified hydronephrosis; I13.0 Hypertensive heart and chronic kidney disease with heart failure and stage 1 through stage 4 chronic kidney disease, or unspecified chronic kidney disease; Z20.822 Contact with and (suspected) exposure to COVID-19; I48.92 Unspecified atrial flutter; I42.0 Dilated cardiomyopathy; I25.10 Atherosclerotic heart disease of native coronary artery without angina pectoris; I25.5 Ischemic cardiomyopathy; E78.5 Hyperlipidemia, unspecified; G20 Parkinson's disease; R73.9 Hyperglycemia, unspecified; I08.3 Combined rheumatic disorders of mitral, aortic and tricuspid valves; D69.6 Thrombocytopenia, unspecified; N18.9 Chronic kidney disease, unspecified; N40.1 Benign prostatic hyperplasia with lower urinary tract symptoms; R33.8 Other retention of urine; E86.0 Dehydration; Z86.73 Personal history of transient ischemic attack (TIA), and cerebral infarction without residual deficits; Z88.1 Allergy status to other antibiotic agents; Z79.899 Other long term (current) drug therapy; Z79.82 Long term (current) use of aspirin; Z95.5 Presence of coronary angioplasty implant and graft; Z79.01 Long term (current) use of anticoagulants
CPT/HCPCS: 31500; 33285; 36415; 36416; 36600; 70450; 70496; 70498; 70551; 71045; 76770; 80048; 80053; 80061; 80069; 80076; 80306; 80307; 81003; 81015; 82553; 82570; 82805; 83036; 83735; 83880; 84145; 84156; 84443; 84484; 85025; 85610; 85730; 87040; 87077; 87086; 87324; 87449; 87811; 93005; 93010; 93306; 94002; 94003; 94760; 95712; 95819; 95957; C1764; J0282; J0696; J1650; J1940; J2060; J2250; J2272; J2405; J2704; J3475; J3490; J7030; J7050; J7070; Q9967; S0028; U0003; U0005

== ENCOUNTER 2022-08-20 09:55 | Inpatient (IN) | payer MEDICARE ==
[2022-08-20] MEDS ORDERED: Rocuronium Bromide 10 MG/ML (10ML VIAL) ONE (10:00)
[2022-08-20] MEDS ORDERED: Fentanyl 100 MCG/2 ML VIAL ONE (10:00)
[2022-08-20] MEDS ORDERED: NOREPINEPHRINE 8 MG/250 ML-D5W 250 ML ONE (10:18)
[2022-08-20 10:23] LABS: #Basophils 0.1 thou/uL (0.0-0.2); #Eosinphils 0.3 thou/uL (0.0-0.7); #Lymphocytes 1.7 thou/uL (1.20-3.40); #Monocytes 0.6 thou/uL (0.11-0.59); #Neutrophils 12.8 thou/uL (1.40-6.50); %Basophils 0.4 % (0.0-1.0); %Eosinophils 1.7 % (0.0-10.0); %Lymphocytes 11.3 % (21.0-51.0); %Monocytes 3.8 % (0.0-10.0); %Neutrophils 82.8 % (42.0-75.0); Hemoglobin 13.3 g/dL (14.0-18.0); Mean Corpuscular HGB CONC 31.8 g/dL (32.0-36.0); Mean Corpuscular Hemoglobin 30.5 pg (27.0-31.0); Mean Corpuscular Volume 95.9 fl (78.0-98.0); Mean Platelet Volume 9.9 fL (7.4-10.4); Platelet Count 208 10x3/uL (130-400); Red Blood Cell (RBC) Count 4.36 mill/uL (4.70-6.10); White Blood Cell (WBC) Count 15.4 10x3/uL (4.8-10.8)
[2022-08-20] MEDS ORDERED: Fentanyl CADD 100 ML IV SCH ×2 (10:30→13:45)
[2022-08-20 10:33] LABS: INR-International Normal Ratio 1.7; PTT 35.8 sec (22.9-36.1); Prothrombin Time 20.9 sec (12.0-14.7)
[2022-08-20 10:39] LABS: Actual Bicarbonate (HCO3a) 16.3 mEq/L (22-28); Analyzer IN Cardio ER; Base Excess (BEa) -8.6 mEq/L (-2.0 to +3.0); CO2 Tension 31.9 mmHg (35.0-45.0); Calcium, Ionized (arterial) 1.16 mmol/L (1.12-1.30); Hemoglobin (Hb) 12.4 g/dL (14.0-18.0); O2 Tension (PaO2), arterial 181.6 mmHg (> 70.0); Potassium - ABG Lab 3.43 mmol/L (3.70-5.30); pH, Arterial 7.33 (7.35-7.45)
[2022-08-20 10:42] LABS: Puncture Site RRA
[2022-08-20 10:43] LABS: ALV-art Gradient 206.325 mmHg (0-20)
[2022-08-20] MEDS ORDERED: cefTRIAXone\\ROCEPHIN 2 GM VIAL ONE (10:44)
[2022-08-20 10:52] LABS: ALT (SGPT) Less than 7 U/L (8-55); AST (SGOT) 26 U/L (5-34); Albumin 3.3 g/dL (3.4-4.8); Alkaline Phosphatase 59 U/L (40-110); Anion Gap 19 mmol/L (10-20); BUN (Urea Nitrogen) 21 mg/dL (8.4-25.7); Calc. Creatinine Clearance 0 mL/min (70-130); Calcium 8.7 mg/dL (7.8-10.44); Carbon Dioxide 14 mmol/L (23-31); Chloride 101 mmol/L (98-107); Estimated GFR 37; Glucose 152 mg/dL (83-110); Lipase 34 U/L (8-78); Potassium 4.5 mmol/L (3.5-5.1); Protein, Total 6.3 g/dL (5.8-8.1); Sodium 129 mmol/L (136-145)
[2022-08-20 11:17] LABS: CKMB 6.6 ng/mL (0-6.6)
[2022-08-20 11:40] LABS: Bacteria/HPF None Seen HPF (None Seen); Bilirubin Negative (Negative); Blood, Urine 3+ (Negative); Clarity Turbid (Clear); Glucose, Urine (Dipstick) 100 mg/dL (Negative); Ketone, Urine Negative (Negative); Leukocyte 25 Leu/uL (Negative); Nitrite Negative (Negative); Protein, Urine (Dipstick) 30 mg/dL (Neg-Trace); RBC/HPF Greater than 50 HPF (0-3); Specific Gravity, Urine 1.014 (1.002-1.036); Squamous Epithelial 0-3 HPF (0-3); Urobilinogen Normal mg/dL (Less than 2); pH, Urine 5.5 (5.0-9.0)
[2022-08-20] MEDS ORDERED: Lidocaine 1% (PF) 30 ML VIAL ONE (11:44)
[2022-08-20] MEDS ORDERED: Acetaminophen 325 MG Suppository PR PRN (12:56)
[2022-08-20] MEDS ORDERED: Electrolyte Replacement Protocol 1 EACH IVPB SCH (12:56)
[2022-08-20] MEDS ORDERED: Ipratropium/Albuterol 3 ML NEB NEB PRN (12:56)
[2022-08-20] MEDS ORDERED: Ventilator Sedation Protocol 1 EACH FS SCH (13:00)
[2022-08-20] MEDS ORDERED: Sodium Chloride 0.9% 1,000 ML IV SCH ×3 (13:00→14:30)
[2022-08-20] MEDS ORDERED: Propofol 1,000 MG/100 ML VIAL IV ONE (13:17)
[2022-08-20] MEDS ORDERED: Lorazepam 2 MG/ML VIAL SLOW IVP PRN (13:45)
[2022-08-20] MEDS ORDERED: DISCONTINUE PREVIOUS NARCOTIC PAIN MEDICATIONS AND BENZODIAZEPINES FS SCH (13:45)
[2022-08-20] MEDS ORDERED: Propofol BOLUS 1,000 MG/100 ML VIAL IV PRN (13:45)
[2022-08-20] MEDS ORDERED: Fentanyl BOLUS 250 ML IVPB PRN (13:45)
[2022-08-20] MEDS ORDERED: Morphine 4 MG/ML VIAL SLOW IVP PRN (13:45)
[2022-08-20 13:57] LABS: SARS-CoV-2 NAA Rapid Test Not Detected (NotDetected)
[2022-08-20 14:26] LABS: Lactic Acid 1.2 mmol/L (0.5-2.2)
[2022-08-20] MEDS ORDERED: PATIENT'S HOME MEDICATION PO SCH ×2 (15:00)
[2022-08-20] MEDS ORDERED: Atropine Sulfate 1 mg/10 ml Syringe ONE (15:21)
[2022-08-20] MEDS: RYTARY PO SCH ×2 (18:10)
[2022-08-20] MEDS: Vancomycin HCl 125 MG/5 ML (BATCHED) UDCUP PER TUBE SCH (18:10)
[2022-08-20] MEDS ORDERED: Famotidine/PF 20 mg/2ml Vial SLOW IVP SCH (21:00)
[2022-08-20] MEDS: Amantadine HCl 10 mg/ml Oral Solution PER TUBE SCH (21:29)
[2022-08-20] MEDS: Propofol 1,000 MG/100 ML VIAL IV PRN (22:45)
[2022-08-21] MEDS: Vancomycin HCl 125 MG/5 ML (BATCHED) UDCUP PER TUBE SCH ×3 (01:22→12:07)
[2022-08-21 04:18] LABS: #Basophils 0.1 thou/uL (0.0-0.2); #Eosinphils 0.2 thou/uL (0.0-0.7); #Lymphocytes 1.1 thou/uL (1.20-3.40); #Monocytes 0.5 thou/uL (0.11-0.59); %Basophils 0.8 % (0.0-1.0); %Eosinophils 2.3 % (0.0-10.0); %Lymphocytes 11.4 % (21.0-51.0); %Monocytes 4.9 % (0.0-10.0); %Neutrophils 80.7 % (42.0-75.0); Hemoglobin 11.6 g/dL (14.0-18.0); Mean Corpuscular HGB CONC 32.9 g/dL (32.0-36.0); Mean Corpuscular Hemoglobin 30.8 pg (27.0-31.0); Mean Corpuscular Volume 93.7 fl (78.0-98.0); Platelet Count 173 10x3/uL (130-400); Red Blood Cell (RBC) Count 3.77 mill/uL (4.70-6.10)
[2022-08-21 04:43] LABS: ALT (SGPT) Less than 7 U/L (8-55); AST (SGOT) 18 U/L (5-34); Albumin 2.9 g/dL (3.4-4.8); Alkaline Phosphatase 49 U/L (40-110); Anion Gap 12 mmol/L (10-20); BUN (Urea Nitrogen) 16 mg/dL (8.4-25.7); Bilirubin, Total 0.9 mg/dL (0.2-1.2); Calc. Creatinine Clearance 66 mL/min (70-130); Calcium 8.1 mg/dL (7.8-10.44); Carbon Dioxide 23 mmol/L (23-31); Chloride 103 mmol/L (98-107); Estimated GFR 71; Globulin 2.3 g/dL (2.4-3.5); Glucose 87 mg/dL (83-110); Potassium 3.8 mmol/L (3.5-5.1); Protein, Total 5.2 g/dL (5.8-8.1); Sodium 134 mmol/L (136-145)
[2022-08-21] MEDS: Propofol 1,000 MG/100 ML VIAL IV PRN (05:28)
[2022-08-21] MEDS: RYTARY PO SCH ×6 (05:57→14:04)
[2022-08-21 07:07] VITALS: BP 105/54
[2022-08-21] MEDS: Amantadine HCl 10 mg/ml Oral Solution PER TUBE SCH (09:56)
[2022-08-21] MEDS ORDERED: Ibuprofen 800 MG TAB PO PRN (11:06)
[2022-08-21] MEDS ORDERED: Acetaminophen 500 MG TAB PO PRN (11:20)
[2022-08-21 12:07] VITALS: BMI 25.5
[2022-08-21 12:42] VITALS: TEMP 98
[2022-08-21] MEDS ORDERED: Acetaminophen 500 MG TAB PO SCH (21:00)
== END 2022-08-21 15:04 | disposition short-term general hospital (02) | DRG 260 ==
LOC: ERS 09:55 → CCL 12:08 → CCU 12:37
PROVIDERS: ADMIT Internal Medicine Cardiovascular Disease; ATTEND Family Medicine
PROC: 02H63JZ Insertion of Pacemaker Lead into Right Atrium, Percutaneous Approach (ICD-10-PCS; principal; 2022-08-20)
PROC: 02HK3JZ Insertion of Pacemaker Lead into Right Ventricle, Percutaneous Approach (ICD-10-PCS; 2022-08-20)
PROC: 5A1223Z Performance of Cardiac Pacing, Continuous (ICD-10-PCS; 2022-08-20)
PROC: 5A1935Z Respiratory Ventilation, Less than 24 Consecutive Hours (ICD-10-PCS; 2022-08-20)
DX: I44.2 Atrioventricular block, complete (principal); G93.41 Metabolic encephalopathy; I46.2 Cardiac arrest due to underlying cardiac condition; J96.01 Acute respiratory failure with hypoxia; N17.9 Acute kidney failure, unspecified; E87.1 Hypo-osmolality and hyponatremia; E87.20 Acidosis, unspecified; Z51.5 Encounter for palliative care; Z66 Do not resuscitate; Z20.822 Contact with and (suspected) exposure to COVID-19; I25.5 Ischemic cardiomyopathy; G20 Parkinson's disease; I48.91 Unspecified atrial fibrillation; I11.0 Hypertensive heart disease with heart failure; R33.9 Retention of urine, unspecified; I50.9 Heart failure, unspecified; I25.10 Atherosclerotic heart disease of native coronary artery without angina pectoris; Z79.01 Long term (current) use of anticoagulants; Z79.899 Other long term (current) drug therapy
CPT/HCPCS: 31500; 33210; 36415; 36600; 51702; 70450; 71045; 80053; 81003; 81015; 82553; 82805; 83605; 83690; 83880; 84443; 84484; 85025; 85610; 85730; 86850; 86900; 86901; 87040; 87086; 92950; 92953; 93005; 94002; 94003; 94760; 96365; 96374; 99292; C1769; C1894; J0461; J0696; J1650; J2001; J2704; J3010; J7050; S0028